=== PATIENT | male | born 1955 | race Hispanic/Latino ===

== ENCOUNTER 2021-12-13 07:40 | Day surgery (SDC) | payer OTHER ==
[2021-12-08 10:30] VITALS: BP 110/50
[2021-12-08 10:30] LABS: BASOPHILS % (AUTO) 0.9 % (0.0-5.0); EOSINOPHILS % (AUTO) 2.7 % (0.0-8.0); HEMATOCRIT 40.5 % (42-54); LYMPHOCYTES % (AUTO) 25.2 % (21.0-51.0); MEAN CORPUSCULAR HEMOGLOBIN 30.3 pg (27.0-33.0); MEAN CORPUSCULAR HGB CONC 34.6 g/dL (32.0-36.0); MEAN CORPUSCULAR VOLUME 87.7 fL (79-99); MONOCYTES % (AUTO) 7.2 % (3.0-13.0); NEUTROPHILS % (AUTO) 63.8 % (40.0-77.0); PLATELET COUNT (AUTO) 213 K/uL (130-400); RED BLOOD CELL COUNT(AUTO) 4.62 MIL/uL (4.50-6.20); RED CELL DISTRIBUTION WIDTH 12.5 % (11.0-15.5); WHITE BLOOD COUNT (AUTO) 5.6 K/uL (4.8-10.8)
[2021-12-08 10:34] LABS: APPEARANCE,URINE Clear (CLEAR); BILIRUBIN,URINE Negative (NEGATIVE); COLOR,URINE Yellow (YELLOW); GLUCOSE, URINE (UA) TRACE mg/dL (NEGATIVE); KETONES,URINE Trace mg/dL (NEGATIVE); LEUKOCYTE ESTERASE ,URINE Negative (NEGATIVE); NITRATE,URINE Negative (NEGATIVE); OCCULT BLOOD,URINE Negative (NEGATIVE); PROTEIN,URINE Negative (NEGATIVE)
[2021-12-08 10:36] LABS: CREATININE 1.5 mg/dL (0.5-1.5); POTASSIUM 5.2 mmol/L (3.5-5.1)
[2021-12-08 10:40] LABS: INR 1.03 (0.85-1.15); PROTHROMBIN TIME 11.2 SEC (9.6-11.6)
[2021-12-08 10:41] LABS: PARTIAL THROMBOPLASTIN TIME 26.8 SEC (26.3-35.5)
[2021-12-08 10:46] LABS: BACTERIA,URINE Rare /HPF (None Seen); RBC,URINE 0-1 /HPF (0-1); SQUAMOUS EPITHELIAL CELL,UR Rare /HPF (0-2)
[2021-12-08 10:47] LABS: HYALINE CASTS, URINE 0-1 /LPF (0-1 /LPF); MUCUS,URINE Few LPF (None Seen)
[2021-12-08 10:52] LABS: B-TYPE NATRIURETIC PEPTIDE 116 pg/mL (0-100)
[2021-12-13] VITALS (10 sets, daily range): BP systolic 118–156; BP diastolic 60–79
[~2021-12-13] VITALS: Ht 172.7 cm; Wt 82.1 kg
[~2021-12-13 07:40] MED LIST: 0.9% NACL 500ML IV.SOLN 500 ML IV SCH
[2021-12-13] MEDS ORDERED: SOLU-MEDROL 125MG VIAL ONE (07:44)
[2021-12-13] MEDS ORDERED: 0.9%NACL 1000ML 1,000 ML IV ONE (07:44)
[2021-12-13] MEDS ORDERED: SOLU-MEDROL 125MG VIAL IVP ONE (08:30)
[2021-12-13] MEDS ORDERED: NITROGLYCERIN 50MG VIAL ONE (08:49)
[2021-12-13] MEDS ORDERED: BIVALIRUDIN 250 MG/VIAL IV ONE (08:49)
[2021-12-13] MEDS ORDERED: IOHEXOL-350 50ML VIAL IV ONE (08:49)
[2021-12-13] MEDS ORDERED: IOHEXOL-350 75 ML VIAL IV ONE (08:50)
[2021-12-13] MEDS ORDERED: LIDOCAINE HCL 400MG/20ML VIAL ONE (08:50)
[2021-12-13] MEDS ORDERED: MIDAZOLAM HCL 1 MG/ML 2ML VIAL ONE (08:50)
[2021-12-13] MEDS ORDERED: FENTANYL CITRATE PF 50 MCG/1 ML 2ML VIAL ONE (08:50)
[2021-12-13] MEDS ORDERED: TERB250T89 PO (09:02)
[2021-12-13] MEDS ORDERED: LEVO50TA11 PO (09:02)
[2021-12-13] MEDS ORDERED: MELO-106 PO (09:02)
[2021-12-13] MEDS ORDERED: CETI10TA57 PO (09:02)
[2021-12-13] MEDS ORDERED: FLUT16H NS (09:02)
[2021-12-13] MEDS ORDERED: METF-446 PO (09:02)
[2021-12-13] MEDS ORDERED: AEC81 PO (09:02)
[2021-12-13] MEDS ORDERED: ROSU20TA31 PO (09:02)
[2021-12-13] MEDS ORDERED: GABA300C PO (09:02)
[2021-12-13] MEDS ORDERED: FAMO20TA8 PO (09:02)
[2021-12-13] MEDS ORDERED: PRED20TA3 PO (09:02)
[2021-12-13] MEDS ORDERED: LISI5TAB21 PO (09:02)
[2021-12-13] MEDS ORDERED: 0.9%NACL 1000ML 1,000 ML IV SCH (10:00)
== END 2021-12-13 14:00 | disposition home or self-care (01) ==
LOC: DAH 07:40
PROVIDERS: ATTEND Internal Medicine Cardiovascular Disease
DX: R94.31 Abnormal electrocardiogram [ECG] [EKG] (principal); I20.8 Other forms of angina pectoris; R06.00 Dyspnea, unspecified; I11.0 Hypertensive heart disease with heart failure; E78.5 Hyperlipidemia, unspecified; E11.9 Type 2 diabetes mellitus without complications; I50.32 Chronic diastolic (congestive) heart failure; Z79.01 Long term (current) use of anticoagulants; Z79.82 Long term (current) use of aspirin; Z88.0 Allergy status to penicillin; Z88.8 Allergy status to other drugs, medicaments and biological substances; Z79.84 Long term (current) use of oral hypoglycemic drugs; Z79.899 Other long term (current) drug therapy
CPT/HCPCS: 36415; 71045; 80048; 81001; 82948; 83880; 85025; 85610; 85730; 93005; 93306; 93356; 93458; 96374; 96375; A4215; A4216; A4221; A4222; A4223 ×3; A4606; A4663; C1760; C1894 ×2; J1644; J2250; J2930; J3010; J3490 ×2; J7030; Q9967; 99156; 99157; J0583